=== PATIENT | male | born 1960 | race Caucasian/White ===

== ENCOUNTER 2017-01-31 08:51 | Inpatient (IN) | payer OTHER ==
[~2017-01-31] VITALS: Ht 182.9 cm; Wt 90.7 kg
[~2017-01-31 08:51] MED LIST: BACL-141; LORA2TAB2; PHEN100C12; SIMV40TA5; dilantin
[2017-01-31 09:50] LABS: HEMATOCRIT. 38.3 % (42.0-52.0); HEMOGLOBIN. 13.2 g/dL (14.0-18.0); MEAN CORPUSCULAR HEMOGLOBIN 29.9 pg (28.0-32.0); MEAN CORPUSCULAR VOLUME 86.8 fL (80.0-94.0); MEAN PLATELET VOLUME 9.8 fl (7.4-10.4); PLATELET 261 x1000/uL (130-400); RED BLOOD CELL COUNT 4.41 mill/uL (4.7-6.1); RED CELL DISTRIBUTION WIDTH 13.1 % (11.6-14.6)
[2017-01-31 09:59] LABS: INR 1.1; PARTIAL THROMBOPLASTIN TIME 24.5 sec (23.4-31.0); PROTHROMBIN TIME 11.5 sec (9.4-11.6)
[2017-01-31 10:08] LABS: CARBON DIOXIDE 28 mEq/L (21-32); CHLORIDE 107 mEq/L (98-107); TROPONIN I < 0.02 ng/mL (0.00-0.04)
[2017-01-31 10:19] LABS: ATYPICAL LYMPHOCYTES 1; PLATELET ESTIMATE NORMAL
[2017-01-31] MEDS ORDERED: IPRATROPIUM/ALBUTEROL 0.5-3(2.5)MG/3ML NEB INH PRN (13:30)
[2017-01-31] MEDS ORDERED: HYDROCODONE/ACETAMINOPHEN 5/325MG TABLET PO PRN (13:30)
[2017-01-31] MEDS ORDERED: ACETAMINOPHEN 325MG TABLET PO PRN (13:30)
[2017-01-31] MEDS ORDERED: CLONIDINE 0.1MG TABLET PO PRN (13:30)
[2017-01-31] MEDS ORDERED: ONDANSETRON HCL 4MG/2ML VIAL IV PRN (13:30)
[2017-01-31 14:48] VITALS: BP 125/82
[2017-01-31] MEDS ORDERED: MECLIZINE 25MG TABLET PO PRN (16:30)
[2017-01-31 16:44] VITALS: BP 106/51
[2017-01-31 16:58] LABS: CLARITY URINE CLEAR (CLEAR); COLOR URINE YELLOW (YELLOW); GLUCOSE URINE NEGATIVE (NEGATIVE); KETONES URINE NEGATIVE (NEGATIVE); LEUKOCYTE ESTERASE URINE NEGATIVE (NEGATIVE); NITRITE URINE NEGATIVE (NEGATIVE); OCCULT BLOOD URINE NEGATIVE (NEGATIVE); PH URINE 8.5 (4.5-8.0); PROTEIN URINE NEGATIVE (NEGATIVE); SPECIFIC GRAVITY URINE 1.014 (1.005-1.030); UROBILINOGEN URINE 0.2 E.U./dL (0.2-1.0)
[2017-01-31 20:01] VITALS: BP 135/81
[2017-01-31] MEDS ORDERED: ATORVASTATIN CALCIUM 10MG TABLET PO SCH (21:00)
[2017-01-31] MEDS: PHENYTOIN SODIUM EXTENDED 100MG CAPSULE PO SCH (21:14)
[2017-02-01 00:11] VITALS: BP 120/61
[2017-02-01 04:00] VITALS: BP 127/85
[2017-02-01 06:41] LABS: BASOPHILS % 0.7 % (0.0-2.0); EOSINOPHILS % 4.2 % (0.0-5.0); HEMATOCRIT. 41.2 % (42.0-52.0); LYMPHOCYTES % 37.1 % (20.0-50.0); MEAN CORPUSCULAR HEMOGLOBIN 29.9 pg (28.0-32.0); MEAN PLATELET VOLUME 9.8 fl (7.4-10.4); PLATELET 247 x1000/uL (130-400); RED BLOOD CELL COUNT 4.69 mill/uL (4.7-6.1); RED CELL DISTRIBUTION WIDTH 13.1 % (11.6-14.6)
[2017-02-01 07:36] VITALS: BP 129/70
[2017-02-01 08:03] LABS: CHLORIDE 107 mEq/L (98-107)
[2017-02-01] MEDS: PHENYTOIN SODIUM EXTENDED 100MG CAPSULE PO SCH ×2 (08:15→21:46)
[2017-02-01] MEDS: SERTRALINE HCL 25MG TABLET PO SCH (08:15)
[2017-02-01] MEDS: ASPIRIN 81MG TABLET PO SCH (08:16)
[2017-02-01 08:24] LABS: CARBON DIOXIDE 24 mEq/L (21-32); HDL CHOLESTEROL 50 mg/dL (40-59); LDL CHOLESTEROL 156 mg/dL (5-100)
[2017-02-01 11:45] VITALS: BP 137/76
[2017-02-01 15:45] VITALS: BP 177/77
[2017-02-01 20:00] VITALS: BP 116/78
[2017-02-01] MEDS ORDERED: ATORVASTATIN CALCIUM 10MG TABLET PO SCH (21:00)
[2017-02-02] VITALS: BP 126/78
[2017-02-02 04:00] VITALS: BP 125/79
[2017-02-02 07:03] LABS: BASOPHILS % 0.4 % (0.0-2.0); EOSINOPHILS % 4.4 % (0.0-5.0); HEMATOCRIT. 41.7 % (42.0-52.0); HEMOGLOBIN. 14.1 g/dL (14.0-18.0); LYMPHOCYTES % 37.5 % (20.0-50.0); MEAN CORPUSCULAR HEMOGLOBIN 29.6 pg (28.0-32.0); MEAN CORPUSCULAR VOLUME 87.9 fL (80.0-94.0); MEAN PLATELET VOLUME 9.5 fl (7.4-10.4); MONOCYTES % 14.3 % (2.0-8.0); NEUTROPHILS % 43.4 % (40.0-76.0); PLATELET 252 x1000/uL (130-400); RED BLOOD CELL COUNT 4.74 mill/uL (4.7-6.1); RED CELL DISTRIBUTION WIDTH 12.9 % (11.6-14.6)
[2017-02-02 07:47] LABS: CARBON DIOXIDE 24 mEq/L (21-32); CHLORIDE 105 mEq/L (98-107)
[2017-02-02 08:00] VITALS: BP 118/81
[2017-02-02] MEDS: ASPIRIN 81MG TABLET PO SCH (08:37)
[2017-02-02] MEDS: PHENYTOIN SODIUM EXTENDED 100MG CAPSULE PO SCH ×2 (08:37→21:49)
[2017-02-02] MEDS: SERTRALINE HCL 25MG TABLET PO SCH (08:37)
[2017-02-02 12:00] VITALS: BP 123/78
[2017-02-02 12:46] LABS: *AMPHETAMINES SCREEN URINE NEGATIVE (NEGATIVE); *BARBITURATES SCREEN URINE NEGATIVE (NEGATIVE); *BENZODIAZEPINES SCREEN URINE NEGATIVE (NEGATIVE); *COCAINE SCREEN URINE NEGATIVE (NEGATIVE); CANNABINOID URINE SCREEN NEGATIVE (NEGATIVE); METHADONE URINE SCREEN NEGATIVE (NEGATIVE); OPIATES URINE SCREEN NEGATIVE (NEGATIVE); PHENCYCLIDINE URINE SCREEN NEGATIVE (NEGATIVE)
[2017-02-02] MEDS ORDERED: IOHEXOL-350 100 ML BOTTLE ONE (14:34)
[2017-02-02] MEDS ORDERED: SODIUM CHLORIDE 0.9% 10ML VIAL ONE (14:34)
[2017-02-02 15:36] VITALS: BP 121/79
[2017-02-02 20:00] VITALS: BP 119/75
[2017-02-02] MEDS ORDERED: ATORVASTATIN CALCIUM 40MG TABLET PO SCH (21:00)
[2017-02-03] VITALS: BP 122/80
[2017-02-03 04:00] VITALS: BP 121/82
[2017-02-03 05:58] LABS: BASOPHILS % 0.5 % (0.0-2.0); EOSINOPHILS % 5.2 % (0.0-5.0); HEMATOCRIT. 41.4 % (42.0-52.0); HEMOGLOBIN. 14.1 g/dL (14.0-18.0); LYMPHOCYTES % 35.6 % (20.0-50.0); MEAN CORPUSCULAR VOLUME 88.1 fL (80.0-94.0); MEAN PLATELET VOLUME 9.6 fl (7.4-10.4); MONOCYTES % 11.8 % (2.0-8.0); NEUTROPHILS % 46.9 % (40.0-76.0); PLATELET 254 x1000/uL (130-400); RED CELL DISTRIBUTION WIDTH 12.7 % (11.6-14.6)
[2017-02-03 07:54] LABS: CARBON DIOXIDE 27 mEq/L (21-32); CHLORIDE 104 mEq/L (98-107)
[2017-02-03 08:00] VITALS: BP 119/77
[2017-02-03] MEDS: PHENYTOIN SODIUM EXTENDED 100MG CAPSULE PO SCH (10:19)
[2017-02-03] MEDS: SERTRALINE HCL 25MG TABLET PO SCH (10:19)
[2017-02-03] MEDS: ASPIRIN 81MG TABLET PO SCH (10:19)
[2017-02-03 12:00] VITALS: BP 117/72
[2017-02-03 16:00] VITALS: BP 108/74
[2017-02-03 18:55] VITALS: BP 108/74
== END 2017-02-03 20:25 | disposition home health service (06) | DRG 58 ==
LOC: ER 08:51 → 6WST 11:05 → ENRESERV 11:36
PROVIDERS: ADMIT Internal Medicine; ATTEND Internal Medicine
DX: R27.0 Ataxia, unspecified (principal); E83.51 Hypocalcemia; I10 Essential (primary) hypertension; R42 Dizziness and giddiness; G40.909 Epilepsy, unspecified, not intractable, without status epilepticus; R47.1 Dysarthria and anarthria; I69.331 Monoplegia of upper limb following cerebral infarction affecting right dominant side; E78.00 Pure hypercholesterolemia, unspecified; E78.5 Hyperlipidemia, unspecified; D64.9 Anemia, unspecified; R79.89 Other specified abnormal findings of blood chemistry; I69.322 Dysarthria following cerebral infarction; Z79.899 Other long term (current) drug therapy; Z91.81 History of falling
CPT/HCPCS: 36415; 70450; 70496; 70498; 70551; 71010; 80048; 80053; 80061; 80185; 80305; 81003; 83735; 84484; 85025; 85610; 85730; 87040; 87086; 92523; 92610; 93005; 97116; 97162; 99285; A4216; G0482; J8597; Q9967